=== PATIENT | female | born 1965 | race Caucasian/White ===

== ENCOUNTER 2024-05-15 20:23 | Emergency (ER) | payer OTHER, SELFPAY ==
[2024-05-15 20:26] VITALS: BP 160/106
[2024-05-15 21:03] LABS: % Basophils 0.5 % (0-2); % Immature Granulocytes 0.3 % (0-0.5); % Monocytes 7.9 % (1.7-9.3); % Neutrophils 56.3 % (42.2-75.2); Absolute Eosinophils 0.2 10^3/uL (0-0.7); Absolute Lymphocytes 2.6 10^3/uL (1.2-3.4); Absolute Monocytes 0.6 10^3/uL (0.1-0.6); Absolute Neutrophils 4.4 10^3/uL (1.4-6.5); Hematocrit 37.8 % (37.0-47.0); Hemoglobin 12.9 g/dL (12.0-16.0); Mean Corp Hgb Conc. 34.1 g/dL (33.0-37.0); Mean Corpuscular Hgb 31.3 pg (27.0-31.0); Mean Corpuscular Volume 91.7 fL (81.0-99.0); Mean Platelet Volume 9.2 fL (7.4-10.4); Nucleated Red Blood Cells % 0 %; Platelet Count 281 10^3/uL (130-400); Red Blood Cell Count 4.12 10^6/uL (4.20-5.40); Red Cell Dist. Width 12.4 % (11.5-14.5); White Blood Cell Count 7.8 10^3/uL (4.8-10.8)
[2024-05-15 21:18] LABS: ALT (SGPT) 16 U/L (0-35); AST (SGOT) 25 U/L (14-36); Albumin 4.7 g/dl (3.5-5.0); Alkaline Phosphatase 65 U/L (38-126); Blood Urea Nitrogen 18 mg/dl (7-17); Calcium 9.2 mg/dl (8.4-10.2); Carbon Dioxide 25 mmol/L (22-30); Chloride 98 mmol/L (98-107); Glucose 93 mg/dl (70-99); Potassium 4.2 mmol/L (3.5-5.1); Sodium 135 mmol/L (135-145); Total Bilirubin 0.2 mg/dl (0.2-1.3); Total Protein 7.3 g/dl (6.3-8.2); eGFR > 60.00
[2024-05-15 21:25] LABS: Troponin I < 0.012 ng/ml
--- NOTE | 2024-05-16 00:43 | ED.GENMED ---
History of Present Illness
<Alden Means DO - Last Filed: 05/16/24 02:37>
General
Chief Complaint: Breathing Problem
Source: patient and other (Friend)
Exam Limitations: none
Time Seen by Provider: 05/16/24 00:21
Nursing documentation reviewed up to this point in time: agreed with
History of Present Illness
History of Present Illness:
58-year-old female presents emergency room complaining of shortness of breath, bilateral upper back pain and chest heaviness. It has been intermittent over the past few weeks but more severe today. She has a history of lupus.
Past History
<Alden Means DO - Last Filed: 05/16/24 02:37>
Past History
ED Past Medical History: Other (Lupus, kidney stones)
ED Past Surgical History:
Social History
Tobacco: Non-smoker
Alcohol: None
Drug: None
Review of Systems
<Alden Means DO - Last Filed: 05/16/24 02:37>
Review of Systems
Allergies reviewed?: Yes
All Other Systems: Not applicable
Constitutional: Reports no symptoms
EENT: Reports no symptoms
Respiratory: Reports trouble breathing
Cardiac: Reports chest pain
ABD/GI: Reports no symptoms
: Reports no symptoms
Musculoskeletal: Reports no symptoms
Skin: Reports no symptoms
Neurological: Reports no symptoms
Endocrine: Reports no symptoms
Hematologic/Lymphatic: Reports no symptoms
Psychiatric: Reports no symptoms
Phy Exam
<Alden Means DO - Last Filed: 05/16/24 02:37>
Physical Exam
Physical Exam:
Physical Exam
General: no apparent distress, not acutely ill
Neck: supple. no meningeal signs. normal posterior pharynx
Heart: s1/s2 regular rate and rhythm, no murmur. equal radial
pulses.
HEENT: Pupils equal round reactive to light, EOMI
Lungs: no acute respiratory distress. clear bilaterally
Abdomen: normal bowel sounds. not tender. no CVAT
Neuro: alert and oriented. no focal neurological deficits cranial nerves II through XII intact
Skin: no rash
Psychiatric: well kept. interactive and cooperative
Extremities: no edema. no calf tenderness. negative homans. good distal pulses
Scores
<Jaret Gomes, DO - Last Filed: 05/16/24 23:31>
Heart Failure Risk
Heart Failure Risk Score: Not Applicable
Course
<Alden Means, DO - Last Filed: 05/16/24 02:37>
Orders/Labs/Results
Orders:
Orders
05/15/24 20:29
Electrocardiogram (*1) Urgent
Reason for Study: Chest Pain
EKG- Treatment ONCE
CXR2 [CR Chest - 2 Views ] Urgent
Comment:
Reason For Exam: shortness of breath, CP
05/15/24 20:42
Complete Blood Count/With Diff Urgent
Comprehensive Metabolic Panel Urgent
Troponin I Urgent
05/16/24 00:42
CT Chest Pe Study Urgent
Comment:
Reason For Exam: short of breath, chest pain, back pain
05/16/24 01:07
D-Dimer Urgent
Abnormal Lab Results
05/15/24
20:42
RBC 4.12 L 10^6/uL
(4.20-5.40)
MCH 31.3 H pg
(27.0-31.0)
BUN 18 H mg/dl
(7-17)
05/15/24 20:42
05/15/24 20:42
Vital Signs
Initial and Last Documented VS:
Initial Vital Signs
Temp Pulse Resp BP Pulse Ox
98.1 F 82 20 160/106 97
05/15/24 20:26 05/15/24 20:26 05/15/24 20:26 05/15/24 20:26 05/15/24 20:26
Last Documented Vital Signs
Temp Pulse Resp BP Pulse Ox
98.1 F 65 16 138/81 98
05/15/24 20:26 05/16/24 03:09 05/16/24 03:09 05/16/24 03:09 05/16/24 03:09
<Jaret Gomes, DO - Last Filed: 05/16/24 23:31>
Orders/Labs/Results
Orders:
Orders
05/15/24 20:29
Electrocardiogram (*1) Urgent
Reason for Study: Chest Pain
EKG- Treatment ONCE
CXR2 [CR Chest - 2 Views ] Urgent
Comment:
Reason For Exam: shortness of breath, CP
05/15/24 20:42
Complete Blood Count/With Diff Urgent
Comprehensive Metabolic Panel Urgent
Troponin I Urgent
05/16/24 00:42
CT Chest Pe Study Urgent
Comment:
Reason For Exam: short of breath, chest pain, back pain
05/16/24 01:07
D-Dimer Urgent
Abnormal Lab Results
05/15/24
20:42
RBC 4.12 L 10^6/uL
(4.20-5.40)
MCH 31.3 H pg
(27.0-31.0)
BUN 18 H mg/dl
(7-17)
05/15/24 20:42
05/15/24 20:42
Vital Signs
Initial and Last Documented VS:
Initial Vital Signs
Temp Pulse Resp BP Pulse Ox
98.1 F 82 20 160/106 97
05/15/24 20:26 05/15/24 20:26 05/15/24 20:26 05/15/24 20:26 05/15/24 20:26
Last Documented Vital Signs
Temp Pulse Resp BP Pulse Ox
98.1 F 65 16 138/81 98
05/15/24 20:26 05/16/24 03:09 05/16/24 03:09 05/16/24 03:09 05/16/24 03:09
<Alden Means, DO - Last Filed: 05/16/24 02:37>
MDM/Problems Addressed
Differential Diagnosis Includes:
PE, bronchitis, pneumonia
MDM/Problems Addressed:
58-year-old female with suspected bronchitis. CT to evaluate for PE. If negative, will discharge with prescription for albuterol.
Chronic conditions affecting care: Other (Lupus)
<Alden Means, DO - Last Filed: 05/16/24 02:37>
*Radiology
Radiology exam reviewed: preliminary read by ED provider (cxr nad)
*Pulse Oximetry
Patient hypoxic: no
*EKG
Interpreted by ED Provider?: Yes
EKG Intrepretation Date: 05/16/24
EKG Intrepretation Time: 20:37
Interpretation: normal
Comparison EKG: no comparison EKG present
Heart Rate: 78
Rate: normal
Rhythm: sinus
[place]: normal axis
Interval: normal interval
QRS Pattern: normal QRS
Ischemia: no ischemia
*Manifold Builder Interpretation
Rate: normal
Interpretation: normal
Heart Rate: 75
Rhythm: sinus
*Critical Care Note
Total Time (30-74mins, 75-104mins- exclusive of procedures): Not Applicable
<Jaret Gomes, DO - Last Filed: 05/16/24 23:31>
Update Note
Update Note:
CTA chest PE
IMPRESSION:
Good contrast opacification of the pulmonary arteries
There is some limitation due to respiratory motion
No appreciable pulmonary embolus to the segmental pulmonary arterial level
No appreciable acute thoracic aortic pathology on this non-ECG gated exam
No evidence for pneumonia or pulmonary edema
Moderate emphysematous changes
No pleural effusion or pneumothorax
Report faxed directly to ER at 3:10 AM ET
ED Attending Note
<Alden Means, DO - Last Filed: 05/16/24 02:37>
-
Portions of this chart may have been created with voice recognition software.� Occasional wrong word or��sound alike� substitutions may have occurred due to the inherent limitations of voice recognition software.
Discharge Plan
Departure
Patient Disposition: Home (Routine Discharge)
Date of Disposition: 05/16/24
Time of Disposition: 03:26
Patient with high blood pressure during this ER visit?: Yes
Condition: Good
Discharge Problem:
Acute bronchitis
Instructions: Acute Bronchitis, Adult (DC), BLOOD PRESSURE
Prescriptions:
New
albuterol sulfate 90 mcg/actuation aerosol powdr breath activated
2 inh inhalation Q4H PRN (Reason: shortness of breath or wheezing) Qty: 1 0RF
Referrals:
Jeremy Lindsey MD [Family Provider] - Call in 1-3 days for appt
Interventions
Interventions:
*Risk Screen - Suicide Last Done: 05/15/24 23:49
*General Assessment Last Done: 05/16/24 01:02
*Neglect/Abuse Screening Last Done: 05/15/24 23:49
ED- Fall Risk Assessment Last Done: 05/16/24 00:14
*ED COVID-19 Vaccine History Last Done: 05/16/24 01:02
*Nursing Disposition Last Done: 05/16/24 03:32
ED- Cardiac Assessment Last Done: 05/15/24 23:47
ED- Pulmonary Assessment Last Done: 05/15/24 23:47
Discharge Date and Time
Discharge Date/Time: 05/16/24 03:37
Print Language: VINCENTIAN
[2024-05-16 00:59] VITALS: BP 152/90
[2024-05-16 02:05] LABS: D-Dimer < 0.27 ug/mlFEU (0.00-0.50)
[2024-05-16 03:09] VITALS: BP 138/81
== END 2024-05-16 03:37 | disposition home or self-care (01) ==
LOC: EMR 20:23
PROVIDERS: Emergency Medicine; EMERGENCY PHYSICIAN Emergency Medicine; FAMILY PHYSICIAN Internal Medicine
DX: J20.9 Acute bronchitis, unspecified (principal)
CPT/HCPCS: 99285; 71046; 71275; 80053; 84484; 85025; 85379; 93005; Q9967